=== PATIENT | male | born 1965 | race Two or more races ===

== ENCOUNTER 2018-01-15 11:22 | Inpatient (IN) | payer OTHER ==
[2018-01-15 12:03] VITALS: BMI 23.8
--- NOTE | 2018-01-15 14:54 | HP ---
CIWA Score - CIWA Score Nausea/Vomitin-No Nausea/No Vomiting Muscle Tremors: 7-Severe,w/o Arm Extended Anxiety: 6 Agitation: 5 Paroxysmal Sweats: 4-Forehead w/Sweat Beads Orientation: 0-Oriented Tacttile Disturbances: 2-Mild Itch/Numbness/Burn Auditory Disturbances: 0-None Visual Disturbances: 3-Moderate Sensitivity Headache: 5-Severe CIWA-Ar Total Score: 32 Admission ROS S - HPI Allergies/Adverse Reactions: Allergies Allergy/AdvReac Type Severity Reaction Status Date / Time No Known Allergies Allergy Verified 01/15/18 13:41 History of Present Illness: patient here requesting detox from etoh use , reports 12 beers/day , liquor , cannot stop by himself , etoh use since age 20 ,previous detox [facility] recently , relapsed after d/c . denies h/o w/d seizures , + blackouts , + tremors , denies falls , reports drinking in the mornings " all day ". cristian 0.112 utox + bzo tobacco : denies pmhx : htn, asthma (hospitalized , has inhaler - Ventolin) meds : losartan pshx : gastric bypass 2016, allergies : NKDA - Ebola screening Have you traveled outside of the country in the last 21 days: No Have you had contact with anyone from an Ebola affected area: No Have you been sick,other than usual withdrawal symptoms: No Do you have a fever: No Patient History - Patient Medical History Hx Asthma: Yes Hx Chronic Obstructive Pulmonary Disease (COPD): No Hx Cardiac Disorders: No Hx Hypertension: Yes Hx Seizures: No Hx Diabetes: No Hx Gastrointestinal Disorders: No Hx Genitourinary Disorders: No Hx Sexually Transmitted Disorders: No Hx Renal Disease (ESRD): No Hx Depression: No Hx Suicide Attempt: No Hx Schizophrenia: No - Patient Surgical History Past Surgical History: Yes Hx Neurologic Surgery: No Hx Cataract Extraction: No Hx Cardiac Surgery: No Hx Lung Surgery: No Hx Breast Surgery: No Hx Breast Biopsy: No Hx Abdominal Surgery: Yes (gastric bypass) Hx Appendectomy: No Hx Cholecystectomy: No Hx Genitourinary Surgery: No Hx Section: No Hx Orthopedic Surgery: No Anesthesia Reaction: No - PPD History Previous Implant?: Yes Documented Results: Negative w/o proof Implanted On Prior R Admission?: No - Smoking Cessation Smoking history: Never smoked Hx Chewing Tobacco Use: No Initiated information on smoking cessation: No - Substances Abused Alcohol-beer/vodka Route: Oral Frequency: Daily Amount used: 1-6 pk./2 pts. Age of first use: 20 Date of Last Use: 01/15/18 Admission Physical Exam BHS - Vital Signs Vital Signs: Vital Signs - 24 hr 01/15/18 11:59 Temperature 99.6 F Pulse Rate 80 Respiratory 20 Rate Blood Pressure 151/102 - Physical General Appearance: Yes: Severe Distress, Alcohol on Breath Respiratory: Yes: Within Normal Limits, Chest Non-Tender, Lungs Clear Neck: Yes: Within Normal Limits Cardiology: Yes: Regular Rhythm, Regular Rate Abdominal: Yes: Within Normal Limits Back: Yes: Within Normal Limits Extremities: Yes: Tremors Neurological: Yes: Fully Oriented, Alert, Motor Strength 5/5 BHS Breath Alcohol Content Breath Alcohol Content: 0.112 Urine Drug Screen - Results Drug Screen Negative: No Urine Drug Screen Results: BZO-Benzodiazepines
[2018-01-15] MEDS ORDERED: guaiFENesin/D-METHORPHAN HB 10 ML UNIT-DOSE CUPS PO PRN (15:06)
[2018-01-15] MEDS ORDERED: MAG HYDROX/AL HYDROX/SIMETH 30 ML UNIT-DOSE CUP PO PRN (15:06)
[2018-01-15] MEDS ORDERED: chlordiazePOXIDE HCL 25 MG CAPSULE PO PRN (15:06)
[2018-01-15] MEDS ORDERED: IBUPROFEN 400 MG TABLET (FP) PO PRN (15:06)
[2018-01-15] MEDS ORDERED: hydrOXYzine PAMOATE 25 MG CAPSULE (FP) PO PRN (15:06)
[2018-01-15] MEDS ORDERED: MAGNESIUM HYDROX 2400MG/30ML ORAL SUSPENSION 30 ML CUP PO PRN (15:06)
[2018-01-15] MEDS ORDERED: MAGNESIUM CITRATE 300 ML BOTTLE PO PRN (15:06)
[2018-01-15] MEDS ORDERED: LOPERAMIDE HCL 2 MG CAPSULE PO PRN (15:06)
[2018-01-15] MEDS ORDERED: P-EPHED 60MG/TRIPROLIDI 2.5MG TABLET PO PRN (15:06)
[2018-01-15] MEDS ORDERED: MENTHOL/PHENOL 1 EACH UD MM PRN (15:06)
[2018-01-15] MEDS ORDERED: ALBUTEROL SO4 8 GM HFA INHALER IH PRN (15:41)
[2018-01-15] MEDS: LOSARTAN POTASSIUM 50 MG TABLET (FP) PO SCH (16:34)
[2018-01-15] MEDS: chlordiazePOXIDE HCL 25 MG CAPSULE PO SCH ×2 (16:36→22:32)
[2018-01-15] MEDS: ACETAMINOPHEN 325 MG TABLET (FP) PO PRN ×2 (16:37→22:34)
[2018-01-15 18:18] LABS: URINE APPEARANCE CLEAR; URINE BILIRUBIN NEGATIVE (<2.0 mg/dL); URINE COLOR YELLOW; URINE GLUCOSE (UA) NEGATIVE (NEGATIVE); URINE KETONE 1+ (NEGATIVE); URINE LEUK ESTERASE NEGATIVE (NEGATIVE); URINE NITRITE NEGATIVE (NEGATIVE); URINE UROBILINOGEN 4.0 E.U/dl mg/dL (0.2-1.0)
[2018-01-15 19:36] LABS: URINE PROTEIN 1+ (NEGATIVE)
[2018-01-15 19:57] LABS: EPI CELLS RARE /HPF (FEW); URINE MUCUS RARE
[2018-01-15] MEDS ORDERED: THIAMINE HCL 100 MG TABLET (FP) PO SCH (22:00)
[2018-01-15] MEDS ORDERED: MELATONIN 5 MG TABLETS PO PRN (22:00)
[2018-01-16] MEDS: chlordiazePOXIDE HCL 25 MG CAPSULE PO SCH ×2 (05:52→10:27)
--- NOTE | 2018-01-16 08:02 | EKG ---
Test Reason : Blood Pressure : / mmHG Vent. Rate : 082 BPM Atrial Rate : 082 BPM P-R Int : 134 ms QRS Dur : 104 ms QT Int : 380 ms P-R-T Axes : 051 043 053 degrees QTc Int : 443 ms NORMAL SINUS RHYTHM MODERATE VOLTAGE CRITERIA FOR LVH, MAY BE NORMAL VARIANT BORDERLINE ECG NO PREVIOUS ECGS AVAILABLE Confirmed by ROMEO JAIMES MD ([id number]) on 01/16/2018 8:01:50 AM Referred By: Confirmed By:ROMEO JAIMES MD
[2018-01-16] MEDS ORDERED: PRENATAL VITAMINS W/ FOLIC ACID TABLET (FP) PO SCH (10:00)
[2018-01-16] MEDS: LOSARTAN POTASSIUM 50 MG TABLET (FP) PO SCH (10:27)
[2018-01-16 10:29] LABS: ALBUMIN 4.1 g/dl (3.4-5.0); ALK PHOS 53 U/L (45-117); ANION GAP 17 MMOL/L (8-16); BILIRUBIN,TOTAL 1.5 mg/dL (0.2-1); BLOOD UREA NITROGEN 9 mg/dL (7-18); CALCIUM 9.5 mg/dL (8.5-10.1); CHLORIDE 102 mmol/L (98-107); CO2 19 mmol/L (21-32); CREATININE 0.5 mg/dL (0.55-1.3); GLUCOSE,RANDOM 68 mg/dL (74-106); HEMATOCRIT 38.9 % (35.4-49); HEMOGLOBIN 12.9 GM/dL (11.7-16.9); MCH 31.6 pg (25.7-33.7); MCHC 33.3 g/dl (32.0-35.9); MEAN PLT VOLUME 9.1 fl (7.5-11.1); PLATELET COUNT 231 K/MM3 (134-434); RBC 4.09 M/mm3 (4.00-5.60); RDW 17.7 % (11.9-15.9); SGOT/AST 63 U/L (15-37); SGPT/ALT 38 U/L (13-61); SODIUM 139 mmol/L (136-145); TOT PROT 7.8 g/dl (6.4-8.2); WHITE BLOOD COUNT 5.1 K/mm3 (4.0-10.0)
[2018-01-16 10:30] VITALS: BP 109/67; PULSE 64; TEMP 97
[2018-01-16] MEDS ORDERED: FLU VACCINE QUAD 60 MCG/0.5 ML (MDV 18-19) IM ONE (12:00)
--- NOTE | 2018-01-16 14:27 | PN ---
[facility] Progress Note Note: PT DECLINED TO CONTINUE WITH DETOX STATING " I FEEL GOOD, LEAVING NOW". ALERT O X 3. NAD. Vital Signs 01/16/18 10:29 Temperature 97.0 F L Pulse Rate 64 Respiratory 18 Rate Blood Pressure 109/67 Laboratory Tests 01/15/18 01/16/18 01/16/18 16:04 06:00 06:00 WBC 5.1 RBC 4.09 Hgb 12.9 Hct 38.9 MCV 95.0 MCH 31.6 MCHC 33.3 RDW 17.7 H Plt Count 231 MPV 9.1 Sodium 139 Potassium 4.0 Chloride 102 Carbon Dioxide 19 L Anion Gap 17 H BUN 9 Creatinine 0.5 L Creat Clearance w eGFR > 60 Random Glucose 68 L Calcium 9.5 Total Bilirubin 1.5 H AST 63 H ALT 38 Alkaline Phosphatase 53 Total Protein 7.8 Albumin 4.1 Urine Color Yellow Urine Appearance Clear Urine pH 6.0 Ur Specific [place] 1.018 Urine Protein 1+ H Urine Glucose (UA) Negative Urine Ketones 1+ H Urine Blood Negative Urine Nitrite Negative Urine Bilirubin Negative Urine Urobilinogen 4.0 e.u/dl Ur Leukocyte Esterase Negative Urine WBC (Auto) 1 Urine RBC (Auto) <1 Ur Epithelial Cells Rare Urine Mucus Rare NAD PT SIGNED AMA
--- NOTE | 2018-01-16 14:37 | DS ---
[facility] Detox Discharge Summary Admission Date: 01/15/18 Discharge Date: 01/16/18 - History Present History: Alcohol Dependence Additional Comments: PT DECLINED TREATMENT. SIGNED OUT AMA. FOLLOW UP WITH PMD FOR MEDICAL MANAGEMENT OF COMORBID CONDITIONS. - Physical Exam Results Vital Signs: Vital Signs Temperature 97.0 F L 01/16/18 10:29 Pulse Rate 64 01/16/18 10:29 Respiratory Rate 18 01/16/18 10:29 Blood Pressure 109/67 01/16/18 10:29 O2 Sat by Pulse Oximetry (%) Pertinent Admission Physical Exam Findings: WITHDRAWAL SX Laboratory Tests 01/15/18 01/16/18 01/16/18 16:04 06:00 06:00 WBC 5.1 RBC 4.09 Hgb 12.9 Hct 38.9 MCV 95.0 MCH 31.6 MCHC 33.3 RDW 17.7 H Plt Count 231 MPV 9.1 Sodium 139 Potassium 4.0 Chloride 102 Carbon Dioxide 19 L Anion Gap 17 H BUN 9 Creatinine 0.5 L Creat Clearance w eGFR > 60 Random Glucose 68 L Calcium 9.5 Total Bilirubin 1.5 H AST 63 H ALT 38 Alkaline Phosphatase 53 Total Protein 7.8 Albumin 4.1 Urine Color Yellow Urine Appearance Clear Urine pH 6.0 Ur Specific [place] 1.018 Urine Protein 1+ H Urine Glucose (UA) Negative Urine Ketones 1+ H Urine Blood Negative Urine Nitrite Negative Urine Bilirubin Negative Urine Urobilinogen 4.0 e.u/dl Ur Leukocyte Esterase Negative Urine WBC (Auto) 1 Urine RBC (Auto) <1 Ur Epithelial Cells Rare Urine Mucus Rare - Treatment Hospital Course: Discharged Condition Good - Medication Discharge Medications: Ambulatory Orders Albuterol Sulfate Inhaler - [Ventolin Hfa Inhaler -] 2 inh PO Q4H PRN 01/15/18 Calcium Carbonate [Calcium] 600 mg PO DAILY 01/15/18 Chlordiazepoxide HCl 25 mg PO DAILY 01/15/18 Ferrous Sulfate [Feosol] 325 mg PO DAILY 01/15/18 Folic Acid - 1 mg PO DAILY 01/15/18 Losartan Potassium [Cozaar] 100 mg PO DAILY 01/15/18 Multivitamins [Tab-A-Vit -] 1 tab PO DAILY 01/15/18 Thiamine HCl [Vitamin B1] 100 mg PO DAILY 01/15/18 - Diagnosis (1) Alcohol dependence with uncomplicated withdrawal Current Visit: Yes Status: Acute (2) Hypertension Current Visit: Yes Status: Chronic Qualifiers: Hypertension type: essential hypertension Qualified Code(s): I10 - Essential (primary) hypertension (3) Asthma Current Visit: Yes Status: Chronic Qualifiers: Asthma severity: unspecified severity Asthma persistence: unspecified Asthma complication type: unspecified Qualified Code(s): J45.909 - Unspecified asthma, uncomplicated (4) History of anemia Current Visit: Yes Status: Suspected - AMA Did Patient Leave Against Medical Advice: Yes (AMA)
[2018-01-16] MEDS ORDERED: chlordiazePOXIDE HCL 25 MG CAPSULE PO SCH (17:00)
[2018-01-17] MEDS ORDERED: chlordiazePOXIDE 5 MG CAPSULE PO SCH (17:00)
[2018-01-18] MEDS ORDERED: chlordiazePOXIDE HCL 10 MG CAPSULE PO SCH (17:00)
== END 2018-01-16 14:07 | disposition left against medical advice (07) | DRG 770 ==
LOC: YASAS 11:22 → Y3N 15:28
PROC: HZ2ZZZZ Detoxification Services for Substance Abuse Treatment (ICD-10-PCS; principal; 2018-01-15)
DX: F10.230 Alcohol dependence with withdrawal, uncomplicated (principal); I10 Essential (primary) hypertension; J45.909 Unspecified asthma, uncomplicated; Z86.2 Personal history of diseases of the blood and blood-forming organs and certain disorders involving the immune mechanism; Z98.84 Bariatric surgery status
CPT/HCPCS: 36415; 80053; 81003; 81015; 85027; 86593; 90688; 93005; 93010; G0008

== ENCOUNTER 2018-02-19 12:44 | Inpatient (IN) | payer OTHER ==
--- NOTE | 2018-02-19 14:47 | HP ---
CIWA Score - CIWA Score Nausea/Vomitin-Mild Nausea/No Vomiting Muscle Tremors: 6 Anxiety: 4-Mod. Anxious/Guarded Agitation: 4-Moderately Restless Paroxysmal Sweats: 3 Orientation: 0-Oriented Tacttile Disturbances: 0-None Auditory Disturbances: 0-None Visual Disturbances: 0-None Headache: 3-Moderate CIWA-Ar Total Score: 21 Admission ROS BHS - HPI Chief Complaint: " I need help, I've been drinking straight for the past past three days and not eating." Allergies/Adverse Reactions: Allergies Allergy/AdvReac Type Severity Reaction Status Date / Time No Known Allergies Allergy Verified 01/15/18 13:41 History of Present Illness: 52 yo male with hx of alcohol dependence is here seeking detox. This is one of multiple admissions. Last detox 01/15/18 -01/16/18 at [facility] left AMA. Reports was seen at [facility] emergency department three days ago for alcohol intoxication. PMHX; HTN, asthma, gastric bypass (2017), Sleep Apnea. Denies psychiatric history. Denies suicidal / homicidal ideation or hx of suicidal attempt. Denies hx of seizure or blackouts. Exam Limitations: No Limitations - Ebola screening Have you traveled outside of the country in the last 21 days: No Have you had contact with anyone from an Ebola affected area: No Do you have a fever: No - Review of Systems Constitutional: Chills, Diaphoresis, Loss of Appetite, Weakness, Other (shakes) EENT: reports: No Symptoms Reported Respiratory: reports: See HPI, SOB with Exertion, Other Cardiac: reports: No Symptoms Reported GI: reports: Nausea, Poor Appetite, Poor Fluid Intake : reports: No Symptoms Reported Musculoskeletal: reports: No Symptoms Reported Integumentary: reports: Sweating Neuro: reports: Headache Endocrine: reports: Increased Thirst Hematology: reports: See HPI Psychiatric: reports: Orientated x3, Anxious, Depressed (reports increase drinking and depress since separationfrom spouse 10 years ago) Other Systems: Reviewed and Negative Patient History - Patient Medical History Hx Anemia: No Hx Asthma: Yes Hx Chronic Obstructive Pulmonary Disease (COPD): No Hx Cancer: No Hx Cardiac Disorders: No Hx Congestive Heart Failure: No Hx Hypertension: Yes Hx Hypercholesterolemia: No Hx Pacemaker: No HX Cerebrovascular Accident: No Hx Seizures: No Hx Dementia: No Hx Diabetes: No Hx Gastrointestinal Disorders: No Hx Liver Disease: No Hx Genitourinary Disorders: No Hx Sexually Transmitted Disorders: No Hx Renal Disease (ESRD): No Hx Thyroid Disease: No Hx Human Immunodeficiency Virus (HIV): No Hx Hepatitis C: No Hx Depression: Yes Hx Suicide Attempt: No Hx Bipolar Disorder: No Hx Schizophrenia: No - Patient Surgical History Past Surgical History: Yes Hx Neurologic Surgery: No Hx Cataract Extraction: No Hx Cardiac Surgery: No Hx Lung Surgery: No Hx Breast Surgery: No Hx Breast Biopsy: No Hx Abdominal Surgery: Yes (gastric bypass) Hx Appendectomy: No Hx Cholecystectomy: No Hx Genitourinary Surgery: No Hx Section: No Hx Orthopedic Surgery: No Anesthesia Reaction: No - PPD History Previous Implant?: No Documented Results: Negative w/o proof PPD to be Administered?: Yes - Smoking Cessation Smoking history: Never smoked Hx Chewing Tobacco Use: No Initiated information on smoking cessation: No 'Breaking Loose' booklet given: 02/19/18 - Substance & Tx. History Hx Alcohol Use: Yes Hx Substance Use: Yes Substance Use Type: Alcohol Hx Substance Use Treatment: Yes ([facility] 01/15/18 -01/16/18 [facility]) - Substances Abused Alcohol Route: Oral Frequency: Daily Amount used: 3 pints of vodka Age of first use: 20 Date of Last Use: 02/18/18 Family Disease History - Family Disease History Family Disease History: Diabetes: Mother (alive) Admission Physical Exam BHS - Vital Signs Vital Signs: BP: 150/94, P78, RR 22 - Physical General Appearance: Yes: Disheveled, Moderate Distress, Tremorous, Sweating, Anxious HEENTM: Yes: EOMI, Hearing grossly Normal, Normal ENT Inspection, Normocephalic , Normal Voice, JOSEPHINE, Pharynx Normal, Tm's normal Respiratory: Yes: Chest Non-Tender, Lungs Clear, Normal Breath Sounds, No Respiratory Distress, No Accessory Muscle Use Neck: Yes: Within Normal Limits Breast: Yes: Breast Exam Deferred Cardiology: Yes: Regular Rhythm, Regular Rate Abdominal: Yes: Normal Bowel Sounds, Non Tender, Flat, Soft Genitourinary: Yes: Within Normal Limits Back: Yes: Normal Inspection Musculoskeletal: Yes: full range of Motion, Gait Steady, Pelvis Stable Extremities: Yes: Normal Capillary Refill, Normal Inspection, Normal Range of Motion Neurological: Yes: cardiographer II-XII NML intact, Fully Oriented, Alert, Motor Strength 5/5, Depressed Affect Integumentary: Yes: Normal Color, Warm, Diaphoresis Lymphatic: Yes: Within Normal Limits - Diagnostic (1) Alcohol dependence with uncomplicated withdrawal Current Visit: Yes Status: Acute (2) Asthma Current Visit: Yes Status: Chronic Qualifiers: Asthma severity: unspecified severity Asthma persistence: unspecified Asthma complication type: unspecified Qualified Code(s): J45.909 - Unspecified asthma, uncomplicated (3) Hypertension Current Visit: Yes Status: Chronic Qualifiers: Hypertension type: essential hypertension Qualified Code(s): I10 - Essential (primary) hypertension (4) History of anemia Current Visit: Yes Status: Suspected Cleared for Admission BHS - Detox or Rehab S Level of Care: Medically Managed Detox Regimen/Protocol: Librium BHS Breath Alcohol Content Breath Alcohol Content: 0.112
[2018-02-19] MEDS ORDERED: MAGNESIUM HYDROX 2400MG/30ML ORAL SUSPENSION 30 ML CUP PO PRN (15:04)
[2018-02-19] MEDS ORDERED: ACETAMINOPHEN 325 MG TABLET (FP) PO PRN (15:04)
[2018-02-19] MEDS ORDERED: MAGNESIUM CITRATE 300 ML BOTTLE PO PRN (15:04)
[2018-02-19] MEDS ORDERED: MAG HYDROX/AL HYDROX/SIMETH 30 ML UNIT-DOSE CUP PO PRN (15:04)
[2018-02-19] MEDS ORDERED: P-EPHED 60MG/TRIPROLIDI 2.5MG TABLET PO PRN (15:04)
[2018-02-19] MEDS ORDERED: IBUPROFEN 400 MG TABLET (FP) PO PRN (15:04)
[2018-02-19] MEDS ORDERED: MENTHOL/PHENOL 1 EACH UD MM PRN (15:04)
[2018-02-19] MEDS ORDERED: LOPERAMIDE HCL 2 MG CAPSULE PO PRN (15:04)
[2018-02-19] MEDS ORDERED: guaiFENesin/D-METHORPHAN HB 10 ML UNIT-DOSE CUPS PO PRN (15:04)
--- NOTE | 2018-02-19 16:44 | PN ---
[facility] Progress Note Note: PATIENT CAME TO [facility] FOR ALCOHOL DEPENDENCE. PATIENT HAS HX OF HTN, ASTHMA AND GASTRIC BYPASS. PATIENT WAS UNABLE TO PROVIDED URINE SPECIMEN DESPITE BEING GIVEN EXTRA FLUIDS AND MULTIPLE OPPORTUNITIES TO URINATE. PATIENT TREMULOUS, SWEATING AND C/O HEADACHE. V/S REPEATED 164/92-89-18. PATIENT TO BE TRANSFERRED TO ER FOR EVALUATION. REPORT GIVEN TO DR. PALMA.
--- NOTE | 2018-02-19 20:39 | PN ---
[facility] Progress Note Note: Called received from Alicia Re: patient cleared to return from the emergency room to continue detox. re: -pt with tremors and tongue fasciculations -will give IM ativan and finger stick -pt able to void in the ED -pt states he wants to go to [facility] for detox -will monitor in ED at this time 02/19/18 20:13 urine tox +benzos given IM ativan for alcohol withdrawal pt given reglan and motrin for headache neuro intact resident discussed with [facility] - pt was already accepted for admission for detox continue ETOH detox
[2018-02-19] MEDS ORDERED: MELATONIN 5 MG TABLETS PO PRN (22:00)
[2018-02-19] MEDS ORDERED: chlordiazePOXIDE HCL 25 MG CAPSULE PO ONE (23:00)
[2018-02-19] MEDS ORDERED: chlordiazePOXIDE HCL 25 MG CAPSULE PO SCH (23:00)
[2018-02-19] MEDS: THIAMINE HCL 100 MG TABLET (FP) PO SCH (23:28)
--- NOTE | 2018-02-20 09:42 | EKG ---
Test Reason : Blood Pressure : / mmHG Vent. Rate : 076 BPM Atrial Rate : 076 BPM P-R Int : 140 ms QRS Dur : 108 ms QT Int : 398 ms P-R-T Axes : 059 055 049 degrees QTc Int : 447 ms NORMAL SINUS RHYTHM NORMAL ECG WHEN COMPARED WITH ECG OF 15-JAN-2018 15:53, NO SIGNIFICANT CHANGE WAS FOUND Confirmed by FLIP ENCARNACION MD ([id number]) on 02/20/2018 9:42:19 AM Referred By: Confirmed By:FLIP ENCARNACION MD
[2018-02-20 10:41] LABS: HEMATOCRIT 38.3 % (35.4-49); HEMOGLOBIN 13.2 GM/dL (11.7-16.9); MCHC 34.5 g/dl (32.0-35.9); MEAN CELL VOLUME 95.7 fl (80-96); MEAN PLT VOLUME 8.9 fl (7.5-11.1); PLATELET COUNT 233 K/MM3 (134-434); RDW 17.9 % (11.9-15.9); WHITE BLOOD COUNT 4.9 K/mm3 (4.0-10.0)
[2018-02-20 10:51] LABS: ALBUMIN 3.7 g/dl (3.4-5.0); ALK PHOS 52 U/L (45-117); ANION GAP 15 MMOL/L (8-16); BLOOD UREA NITROGEN 11 mg/dL (7-18); CALCIUM 8.7 mg/dL (8.5-10.1); CHLORIDE 98 mmol/L (98-107); CO2 27 mmol/L (21-32); CREATININE 0.4 mg/dL (0.55-1.3); GLUCOSE,RANDOM 60 mg/dL (74-106); POTASSIUM 3.4 mmol/L (3.5-5.1); SGOT/AST 102 U/L (15-37); SGPT/ALT 52 U/L (13-61); SODIUM 140 mmol/L (136-145); TOT PROT 6.9 g/dl (6.4-8.2)
[2018-02-20] MEDS: PRENATAL VITAMINS W/ FOLIC ACID TABLET (FP) PO SCH (11:03)
[2018-02-20] MEDS: hydrOXYzine PAMOATE 50 MG CAPSULE (FP) PO PRN ×2 (11:04→15:00)
[2018-02-20] MEDS: chlordiazePOXIDE HCL 25 MG CAPSULE PO PRN ×2 (11:05→15:01)
--- NOTE | 2018-02-20 11:47 | CONSULT ---
[facility] Psychiatric Consult - Data Date of interview: 02/20/18 Admission source: [facility] Identifying data: Patient is a 52 year old single male, father of three, unemployed, domiciled (lives with mother). This is one of multiple admissions for patient. Patient admitted to for alcohol dependence. Substance Abuse History: Smoking Cessation. Smoking history: Never smoked. Hx Chewing Tobacco Use: No. Initiated information on smoking cessation: No. ' Breaking Loose' booklet given: 02/19/18. - Substance & Tx. History. Hx Alcohol Use: Yes. Hx Substance Use: Yes. Substance Use Type: Alcohol. Hx Substance Use Treatment: Yes ([facility] 01/15/18 -01/16/18 left AMA). - Substances Abused. Alcohol. Route: Oral. Frequency: Daily. Amount used: 3 pints of vodka. Age of first use: 20. Date of Last Use: 02/18/18 Medical History: Anemia, Gastric bypass Psychiatric History: Patient denies h/o psychiatric hospitalizations and suicide attempt. Outpatient psychiatric services is provided in [place] by [address]. [address]. Patient is a poor historian. He is unaware of the psychotrophic medications he is prescribed. Reports most recently taking "medications last week". He is only able to recall his blood pressure medication Losartan. Pharmacy claims reviewed with patient and he was informed of his prescriptions of seroquel 300mg + wellbutrin 300mg XL +Lexapro 20mg + trazodone 150mg. Most recent prescription was electronically sent on 10/07/17. Patient unsure of his medications. Patient is asymptomatic. He reports feeling fine. Patient refusing to restart/resume medications. Physical/Sexual Abuse/Trauma History: denies. Mental Status Exam - Mental Status Exam Alert and Oriented to: Time, Place, Person Cognitive Function: Good Patient Appearance: Well Groomed Mood: Euthymic Affect: Mood Congruent Patient Behavior: Cooperative Speech Pattern: Appropriate Voice Loudness: Normal Thought Process: Intact, Goal Oriented Thought Disorder: Not Present Hallucinations: Denies Suicidal Ideation: Denies Homicidal Ideation: Denies Insight/Judgement: Poor Sleep: Fair Appetite: Fair Muscle strength/Tone: Normal Gait/Station: Normal Psychiatric Findings - Problem List ([place] 1, 2,3) (1) Alcohol dependence with uncomplicated withdrawal Current Visit: Yes Status: Acute (2) Alcohol-induced mood disorder Current Visit: Yes Status: Suspected - Initial Treatment Plan Initial Treatment Plan: Psychoeducation provided. Detoxification in progress. Observation.
--- NOTE | 2018-02-20 14:34 | PN ---
S CIWA - CIWA Score Nausea/Vomitin-Mild Nausea/No Vomiting Muscle Tremors: 3 Anxiety: 3 Agitation: 2 Paroxysmal Sweats: No Perspiration Orientation: 0-Oriented Tacttile Disturbances: 0-None Auditory Disturbances: 0-None Visual Disturbances: 0-None Headache: 1-Very Mild CIWA-Ar Total Score: 10 B[facility] Progress Note (SOAP) Subjective: PATIENT C/O MILD HEADACHE, NAUSEA AND SHAKES. Objective: 02/20/18 14:32 Vital Signs Temperature 97.2 F L 02/20/18 14:22 Pulse Rate 74 02/20/18 14:22 Respiratory Rate 20 02/20/18 14:22 Blood Pressure 152/93 02/20/18 14:22 O2 Sat by Pulse Oximetry (%) Vital Signs Temperature 97.2 F L 02/20/18 14:22 Pulse Rate 74 02/20/18 14:22 Respiratory Rate 20 02/20/18 14:22 Blood Pressure 152/93 02/20/18 14:22 O2 Sat by Pulse Oximetry (%) Laboratory Tests 02/20/18 02/20/18 02/20/18 07:00 07:00 07:00 WBC 4.9 RBC 4.00 Hgb 13.2 Hct 38.3 MCV 95.7 MCH 33.0 MCHC 34.5 RDW 17.9 H Plt Count 233 MPV 8.9 Sodium 140 Potassium 3.4 L Chloride 98 Carbon Dioxide 27 Anion Gap 15 BUN 11 Creatinine 0.4 L Creat Clearance w eGFR > 60 Random Glucose 60 L Calcium 8.7 Total Bilirubin 1.0 AST 102 H ALT 52 Alkaline Phosphatase 52 Total Protein 6.9 Albumin 3.7 RPR Titer Nonreactive PE: SKIN WARM AND DRY CAR S1S2 RESP CTA BL EXT +TREMORS, FULL ROM ALERT AND ORIENTED X 3 +PERRLA, EOMS INTACT BL Assessment: 02/20/18 14:33 WITHDRAWAL SX Plan: CONTINUE DETOX ENCOURAGE ORAL FLUIDS CONTINUE TO MONITOR CLINICALLY
[2018-02-20] MEDS: chlordiazePOXIDE HCL 25 MG CAPSULE PO SCH (22:21)
[2018-02-20] MEDS: THIAMINE HCL 100 MG TABLET (FP) PO SCH (22:21)
[2018-02-21] MEDS: chlordiazePOXIDE HCL 25 MG CAPSULE PO SCH ×2 (06:12→10:08)
[2018-02-21 09:28] VITALS: BP 133/73; PULSE 85; TEMP 97.2
[2018-02-21] MEDS: PRENATAL VITAMINS W/ FOLIC ACID TABLET (FP) PO SCH (10:08)
--- NOTE | 2018-02-21 11:36 | PN ---
[facility] Progress Note Note: Alert and oriented. Gait is steady. Requesting to leave against medical advice. Refuses to stay despite encouragement. Discussed risk of increased intoxication susceptibility and side effects r/t loss of tolerance and verbalizes an understanding.
--- NOTE | 2018-02-21 11:49 | DS ---
[facility] Detox Discharge Summary Admission Date: 02/19/18 Discharge Date: 02/21/18 - History Present History: Alcohol Dependence Additional Comments: Admiited w/ c/o alcohol withdrawal. Pertinent Past History: Hx alcohol use disorder since age 20. Hx HTN and asthma. - Physical Exam Results Vital Signs: Vital Signs Temperature 97.2 F L 02/21/18 09:27 Pulse Rate 85 02/21/18 09:27 Respiratory Rate 16 02/21/18 09:27 Blood Pressure 133/73 02/21/18 09:27 O2 Sat by Pulse Oximetry (%) Pertinent Admission Physical Exam Findings: Admitted for alcohol withdrawal and started on detox regimen. Laboratory Last Values WBC 4.9 K/mm3 (4.0-10.0) 02/20/18 07:00 RBC 4.00 M/mm3 (4.00-5.60) 02/20/18 07:00 Hgb 13.2 GM/dL (11.7-16.9) 02/20/18 07:00 Hct 38.3 % (35.4-49) 02/20/18 07:00 MCV 95.7 fl (80-96) 02/20/18 07:00 MCH 33.0 pg (25.7-33.7) 02/20/18 07:00 MCHC 34.5 g/dl (32.0-35.9) 02/20/18 07:00 RDW 17.9 % (11.9-15.9) H 02/20/18 07:00 Plt Count 233 K/MM3 (134-434) 02/20/18 07:00 MPV 8.9 fl (7.5-11.1) 02/20/18 07:00 Sodium 140 mmol/L (136-145) 02/20/18 07:00 Potassium 3.4 mmol/L (3.5-5.1) L 02/20/18 07:00 Chloride 98 mmol/L (98-107) 02/20/18 07:00 Carbon Dioxide 27 mmol/L (21-32) 02/20/18 07:00 Anion Gap 15 MMOL/L (8-16) 02/20/18 07:00 BUN 11 mg/dL (7-18) 02/20/18 07:00 Creatinine 0.4 mg/dL (0.55-1.3) L 02/20/18 07:00 Creat Clearance w eGFR > 60 (>60) 02/20/18 07:00 Random Glucose 60 mg/dL (74-106) L 02/20/18 07:00 Calcium 8.7 mg/dL (8.5-10.1) 02/20/18 07:00 Total Bilirubin 1.0 mg/dL (0.2-1) 02/20/18 07:00 AST 102 U/L (15-37) H 02/20/18 07:00 ALT 52 U/L (13-61) 02/20/18 07:00 Alkaline Phosphatase 52 U/L (45-117) 02/20/18 07:00 Total Protein 6.9 g/dl (6.4-8.2) 02/20/18 07:00 Albumin 3.7 g/dl (3.4-5.0) 02/20/18 07:00 RPR Titer Nonreactive (NONREACTIVE) 02/20/18 07:00 Labs reviewed. - Treatment Hospital Course: Detox Protocol Followed (Did not complete detox.), Discharged Condition Good (Discharged alert and oriented w/ steady gait.) - Medication Discharge Medications: Ambulatory Orders Albuterol Sulfate Inhaler - [Ventolin Hfa Inhaler -] 2 inh PO Q4H PRN 01/15/18 Ferrous Sulfate [Feosol] 325 mg PO DAILY 01/15/18 Losartan Potassium [Cozaar] 100 mg PO DAILY 01/15/18 Multivitamins [Tab-A-Vit -] 1 tab PO DAILY 01/15/18 Thiamine HCl [Vitamin B1] 100 mg PO DAILY 01/15/18 - Diagnosis (1) Alcohol dependence with uncomplicated withdrawal Status: Acute (2) Asthma Status: Chronic Qualifiers: Asthma severity: unspecified severity Asthma persistence: unspecified Asthma complication type: unspecified Qualified Code(s): J45.909 - Unspecified asthma, uncomplicated (3) Hypertension Status: Chronic Qualifiers: Hypertension type: essential hypertension Qualified Code(s): I10 - Essential (primary) hypertension - AMA Did Patient Leave Against Medical Advice: Yes
[2018-02-21] MEDS ORDERED: chlordiazePOXIDE 5 MG CAPSULE PO SCH (23:00)
[2018-02-22] MEDS ORDERED: chlordiazePOXIDE HCL 10 MG CAPSULE PO SCH (23:00)
== END 2018-02-21 11:54 | disposition left against medical advice (07) | DRG 770 ==
LOC: YASAS 12:44 → Y6N 22:21
PROC: HZ2ZZZZ Detoxification Services for Substance Abuse Treatment (ICD-10-PCS; principal; 2018-02-19)
DX: F10.230 Alcohol dependence with withdrawal, uncomplicated (principal); F10.24 Alcohol dependence with alcohol-induced mood disorder; I10 Essential (primary) hypertension; R33.8 Other retention of urine; Z98.84 Bariatric surgery status; Z86.2 Personal history of diseases of the blood and blood-forming organs and certain disorders involving the immune mechanism; N39.9 Disorder of urinary system, unspecified
CPT/HCPCS: 36415; 80053; 85027; 86593; 93005; 93010

== ENCOUNTER 2018-02-19 17:42 | Emergency (ER) | payer OTHER ==
[2018-02-19 17:57] VITALS: BMI 47.6
--- NOTE | 2018-02-19 18:36 | PDOC ---
History of Present Illness - General Chief Complaint: Headache Stated Complaint: HEADACHE Time Seen by Provider: 02/19/18 18:35 - History of Present Illness Initial Comments: Louis Gentile is a 52yo man with a PMH of HTN, asthma, TONG and alcohol abuse who was sent from detox today because he was unable to provide a urine sample for toxicology. Mr Gentile reports that he has been drinking all day for a week up through this morning. He is unable to report how much he was drinking recently. He complains of a severe headache over his entire head. He also notes shaking for at least the past week. He states that he has not had anything to eat or drink other than alcoholic drinks for a week. He was sent from [facility] because he was unable to urinate for a urine tox screen, and they were unable to complete a straight cath there prior to admission. Past History - Past Medical History Allergies/Adverse Reactions: Allergies Allergy/AdvReac Type Severity Reaction Status Date / Time No Known Allergies Allergy Verified 02/19/18 17:57 Home Medications: Ambulatory Orders Albuterol Sulfate Inhaler - [Ventolin Hfa Inhaler -] 2 inh PO Q4H PRN 01/15/18 Ferrous Sulfate [Feosol] 325 mg PO DAILY 01/15/18 Losartan Potassium [Cozaar] 100 mg PO DAILY 01/15/18 Multivitamins [Tab-A-Vit -] 1 tab PO DAILY 01/15/18 Thiamine HCl [Vitamin B1] 100 mg PO DAILY 01/15/18 Anemia: No Asthma: Yes Cancer: No Cardiac Disorders: No CVA: No COPD: No CHF: No Dementia: No Diabetes: No GI Disorders: No Disorders: No HTN: Yes Hypercholesterolemia: No Kidney Stones: No Liver Disease: No Seizures: No Thyroid Disease: No - Surgical History Abdominal Surgery: Yes (gastric bypass) Appendectomy: No Cardiac Surgery: No Cholecystectomy: No Lung Surgery: No Neurologic Surgery: No Orthopedic Surgery: No - Reproductive History Testicular Surgery: No - Suicide/Smoking/Psychosocial Hx Smoking History: Never smoked Have you smoked in the past 12 months: No Information on smoking cessation initiated: No 'Breaking Loose' booklet given: 02/19/18 Hx Alcohol Use: No Drug/Substance Use Hx: No Substance Use Type: Alcohol Hx Substance Use Treatment: Yes ([facility] 01/15/18 -01/16/18 left AMA) Review of Systems - Review of Systems Able to Perform ROS?: No Comments:: Uncooperative with ROS - reports headache, hand itching, shakiness. *Physical Exam - Vital Signs Last Vital Signs Temp Pulse Resp BP Pulse Ox 98 F 87 16 158/98 100 02/19/18 17:48 02/19/18 17:48 02/19/18 17:48 02/19/18 17:48 02/19/18 17:48 - Physical Exam Comments: General: Uncomfortable, tremulous HEENT: PERRL, EOMI, MMM, voice normal Cards: RRR Pulm: Comfortable on room air Abd: Soft, non-tender Ext: Atraumatic. ROM intact. Strength 5/5 and equal bilaterally Vasc: Extremities WWP. Skin: Normal color, no rashes or lesions noted Neuro: A&Ox3, CN grossly intact, motor/sensory grossly intact and symmetric Psych: Mood appropriate to situation Medical Decision Making - Medical Decision Making 02/19/18 19:08 Louis Gentile is a 52yo man with a PMH of alcohol abuse, TONG, HTN, asthma who was sent from detox as he was unable to provide a urine sample. - Able to urinate in a urinal on arrival - Declined a meal or water - UA, urine tox sent - Will send back to detox when test results return 02/19/18 19:27 - 10mg PO reglan, 600mg PO ibuprofen for headache - With tremors, concern for alcohol withdrawal. Giving 2mg IM ativan - Check fingerstick glucose 02/19/18 19:57 - UA negative for infeciton - Urine tox with +benzos, otherwise negative - Glucose 109 02/19/18 20:16 - Spoke via phone to the SYSTEMS PROGRAMMER at [facility] to transfer back - he has a bed held Seen and discussed with Dr Jazmín Breen PGY1 02/19/18 20:16 *DC/Admit/Observation/Transfer Diagnosis at time of Disposition: Alcohol withdrawal - Discharge Dispostion Disposition: HOME Condition at time of disposition: Stable - Referrals - Patient Instructions Printed Discharge Instructions: DI for Alcohol Abuse, DI for Drug or Alcohol Withdrawal Additional Instructions: Discharge Instructions: - You were seen in the ED for a urine toxicology screen for admission to detox - You received ibuprofen and reglan for a headache. You also received ativan for alcohol withdrawal - Please proceed directly back to detox - Seek immediate medical care if you have any neurological defects (weakness, changes in your speech, facial droop), sudden onset of severe headache, seizures Print Language: MEXICAN - Post Discharge Activity
[2018-02-19] MEDS ORDERED: METOCLOPRAMIDE HCL INJECTION 10 MG/2 ML VIAL IVPUSH STA (18:46)
--- NOTE | 2018-02-19 19:13 | PDOC ---
Attending Attestation - HPI HPI: 02/19/18 19:44 The patient is a 52 year old male with a significant past medical history of HTN , asthma, TONG, and ETOH abuse who was sent to the ED from Detox. Patient was sent into the ED because he was unable to urinate for a urine tox screen, and they were unable to complete a straight cath prior to admission at [facility]. Upon arrival to the ED, patient complains of a generalized headache. Patient states he has been drinking all day over the past week and has not been eating. He reports feeling nervous secondary to alcohol withdrawal. Denies fever or chills. Denies any other symptoms. - Physicial Exam PE: 02/19/18 19:44 Constitutional: + Tremulous. Awake, alert, oriented. Head: Normocephalic. Atraumatic Eyes: PERRL. EOMI. Conjunctivae are not pale. ENT: + Tongue fasciculations. Mucous membranes are moist and intact. Posterior pharynx without exudates or erythema. Uvula midline. Neck: Supple. Full ROM. No lymphadenopathy. Cardiovascular: Regular rate. Regular rhythm. S1, S2 regular. Distal pulses are 2+ and symmetric. Pulmonary/Chest: No evidence of respiratory distress. Clear to auscultation bilaterally No wheezing, rales or rhonchi. Abdominal: Soft and non-distended. There is no tenderness. No rebound, guarding or rigidity. No organomegaly. No palpable masses. Good bowel sounds. Back: No CVA tenderness. Musculoskeletal: No edema. No cyanosis. No clubbing. Full range of motion in all extremities. Nocalf tenderness. Radial/pedal pulses are intact and 2+ bilaterally Skin: Skin is warm and dry. No petechiae. No purpura. Neurological: Alert and oriented to person, place, and time. Cranial nerves II -XII are grossly intact. Normal speech. Strength is grossly symmetric. No sensory deficits. Psychiatric: Good eye contact. Normal interaction, affect and behavior. <Francia Lugo - Last Filed: 02/19/18 19:44> - Resident Resident Name: Tamara Breen - ED Attending Attestation I have performed the following: I have examined & evaluated the patient, The case was reviewed & discussed with the resident, I agree w/resident's findings & plan, Exceptions are as noted - Medical Decision Making 02/19/18 19:12 I, Dr. Lucinda Noyola DO, attest that this document has been prepared under my direction and personally reviewed by me in its entirety. I further attest, that it accurately reflects all work, treatment, procedures and medical decision -making performed by me. 02/19/18 19:32 a/p: 52yo male sent from intake at [facility] for eval of inability to give a urine sample -pt presented to [facility] for detox from ETOH -drinking for past week, not eating or drinking water -requesting detox from etoh -denies drug use -sent from [facility] and UA -pt with tremors and tongue fasciculations -will give IM ativan and finger stick -pt able to void in the ED -pt states he wants to go to [facility] for detox -will monitor in ED at this time 02/19/18 20:13 urine tox +benzos given IM ativan for alcohol withdrawal pt given reglan and motrin for headache neuro intact resident discussed with [facility] - pt was already accepted for admission for detox 02/19/18 20:19 pt feeling much better [facility] updated on meds given in the ED <Lucinda Noyola - Last Filed: 02/19/18 20:20> Attestations - Attestations 02/19/18 19:44 Documentation prepared by Francia Lugo, acting as medical records custodian for Lucinda Noyola DO <Francia Lugo - Last Filed: 02/19/18 19:44>
[2018-02-19 19:19] LABS: URINE APPEARANCE CLEAR; URINE COLOR DKYELLOW; URINE GLUCOSE (UA) NEGATIVE (NEGATIVE); URINE KETONE 2+ (NEGATIVE); URINE LEUK ESTERASE NEGATIVE (NEGATIVE); URINE NITRITE NEGATIVE (NEGATIVE); URINE PROTEIN 2+ (NEGATIVE); URINE UROBILINOGEN 4.0 E.U/dl mg/dL (0.2-1.0)
[2018-02-19] MEDS ORDERED: IBUPROFEN 600 MG TABLET (FP) PO ONE ×2 (19:22→20:11)
[2018-02-19] MEDS ORDERED: METOCLOPRAMIDE HCL 10 MG TABLET (FP) PO ONE ×2 (19:22→20:11)
[2018-02-19 19:23] LABS: EPI CELLS RARE /HPF (FEW); URINE MUCUS MODERATE
[2018-02-19 19:45] LABS: COCAINE, UR NEGATIVE ng/ml (CUTOFF=300); METHADONE, UR NEGATIVE ng/ml (CUTOFF=300); OPIATES, URI NEGATIVE ng/ml (CUTOFF=300); PHENCYCLIDINE,URINE NEGATIVE ng/ml (CUTOFF=25); URINE AMPHETAMINES NEGATIVE ng/ml (CUTOFF=500); URINE BARBITURATES NEGATIVE ng/ml (CUTOFF=200)
[2018-02-19 19:52] LABS: URINE BENZODIAZEPINES POSITIVE ng/ml (CUTOFF=200)
[2018-02-19 21:50] VITALS: BP 142/95; PULSE 92; TEMP 98.4
== END 2018-02-19 22:02 | disposition home or self-care (01) ==
LOC: JER 17:42
PROC: 3E023NZ Introduction of Analgesics, Hypnotics, Sedatives into Muscle, Percutaneous Approach (ICD-10-PCS; principal; 2018-02-19)
DX: F10.230 Alcohol dependence with withdrawal, uncomplicated (principal); I10 Essential (primary) hypertension; J45.909 Unspecified asthma, uncomplicated; G47.33 Obstructive sleep apnea (adult) (pediatric)
CPT/HCPCS: 80307; 81003; 81015; 82962; 99282-25

== ENCOUNTER 2018-02-21 13:08 | Emergency (ER) | payer OTHER ==
[2018-02-21 13:23] VITALS: BP 123/85; PULSE 89; TEMP 98.2; BMI 46.0
--- NOTE | 2018-02-21 14:04 | PDOC ---
History of Present Illness - General Chief Complaint: Psychiatric Stated Complaint: Anxious after taking wrong bus home Time Seen by Provider: 02/21/18 13:15 History Source: Patient Exam Limitations: No Limitations - History of Present Illness Initial Comments: 02/21/18 13:59 52-year-old male presents to ED with complaints of anxiety after going on the wrong public transportation bus after being discharged from here earlier today. Patient thought he was on the right bus to [facility] when he found himself going [facility], got off the bus, then went to a local senior living facility. staff called EMS secondary to patient's complaint of anxiety and EMS had brought him back to [facility]. Patient has no complaints of headache, visual changes, chest pain, shortness of breath, feelings of hopelessness feelings to hurt himself or others. Does have a Medicaid card which I will try to facilitate transportation back to [place] in [facility] Timing/Duration: 1-3 hours Severity: moderate Associated Symptoms: reports: denies symptoms Past History - Past Medical History Allergies/Adverse Reactions: Allergies Allergy/AdvReac Type Severity Reaction Status Date / Time No Known Allergies Allergy Verified 02/21/18 13:23 Home Medications: Ambulatory Orders Albuterol Sulfate Inhaler - [Ventolin Hfa Inhaler -] 2 inh PO Q4H PRN 01/15/18 Ferrous Sulfate [Feosol] 325 mg PO DAILY 01/15/18 Losartan Potassium [Cozaar] 100 mg PO DAILY 01/15/18 Multivitamins [Tab-A-Vit -] 1 tab PO DAILY 01/15/18 Thiamine HCl [Vitamin B1] 100 mg PO DAILY 01/15/18 Anemia: No Asthma: Yes Cancer: No Cardiac Disorders: No CVA: No COPD: No CHF: No Dementia: No Diabetes: No GI Disorders: No Disorders: No HTN: Yes Hypercholesterolemia: No Kidney Stones: No Liver Disease: No Seizures: No Thyroid Disease: No - Surgical History Abdominal Surgery: Yes (gastric bypass) Appendectomy: No Cardiac Surgery: No Cholecystectomy: No Lung Surgery: No Neurologic Surgery: No Orthopedic Surgery: No - Reproductive History Testicular Surgery: No - Suicide/Smoking/Psychosocial Hx Smoking History: Never smoked Have you smoked in the past 12 months: No Information on smoking cessation initiated: No 'Breaking Loose' booklet given: 02/19/18 Hx Alcohol Use: Yes (daily) Drug/Substance Use Hx: No Substance Use Type: Alcohol Hx Substance Use Treatment: No Patient Lives Alone: No Review of Systems - Review of Systems Able to Perform ROS?: No Constitutional: No: Symptoms Reported HEENTM: No: Symptoms Reported Respiratory: No: Symptoms reported Cardiac (ROS): No: Symptoms Reported ABD/GI: No: Symptoms Reported : No: Symptoms Reported Musculoskeletal: No: Symptoms Reported Integumentary: No: Symptoms Reported Neurological: No: Symptoms reported Psychiatric: Yes: Anxiety Endocrine: No: Symptoms Reported Hematologic/Lymphatic: No: Symptoms Reported *Physical Exam - Vital Signs Last Vital Signs Temp Pulse Resp BP Pulse Ox 98.2 F 89 18 123/85 98 02/21/18 13:19 02/21/18 13:19 02/21/18 13:19 02/21/18 13:19 02/21/18 13:19 - Physical Exam General Appearance: Yes: Nourished, Appropriately Dressed. No: Apparent Distress HEENT: positive: EOMI, JOSEPHINE. negative: Pale Conjunctivae Neck: positive: Supple Respiratory/Chest: positive: Lungs Clear, Normal Breath Sounds. negative: Respiratory Distress, Accessory Muscle Use Cardiovascular: positive: Regular Rhythm, Regular Rate. negative: Murmur Integumentary: positive: Normal Color, Warm, Moist Neurologic: positive: Normal Mood/Affect (pt calm and conversive upon my arrival ), Motor Strength 5/5 (ambulatory) Medical Decision Making - Medical Decision Making 02/21/18 14:02 Patient with anxiety after realizing he was on the wrong bus Exam: Patient, conversive and agrees with plan on calling the Medicaid taxi plan: Transportation will be here within 15 minutes. Patient offered lunch tray but states he is okay. *DC/Admit/Observation/Transfer Diagnosis at time of Disposition: Nervousness - Discharge Dispostion Disposition: HOME Condition at time of disposition: Improved - Referrals - Patient Instructions Printed Discharge Instructions: DI for Anxiety -- Adult Additional Instructions: Utilize all your resources to stay sober and active in the community - Post Discharge Activity
== END 2018-02-21 14:37 | disposition home or self-care (01) ==
LOC: JER 13:08
DX: J45.990 Exercise induced bronchospasm (principal); R45.0 Nervousness; F41.9 Anxiety disorder, unspecified; I10 Essential (primary) hypertension; J45.909 Unspecified asthma, uncomplicated
CPT/HCPCS: 99282-25